=== PATIENT | female | born 1965 ===

== ENCOUNTER 2017-07-20 07:47 | Emergency (ER) | payer BC ==
[2017-07-20 08:08] VITALS: BP 149/94
--- NOTE | 2017-07-20 08:21 | UC ---
Throat Pain/Nasal Figueroa HPI - HPI Summary HPI Summary: sinus pain and pressure x 2 weeks, + pnd , nasal congestion , cough + fever, chills, - History of Current Complaint Chief Complaint: UCRespiratory Stated Complaint: fever/cough Time Seen by Provider: 07/20/17 08:09 Hx Obtained From: Patient Hx Last Menstrual Period: spotting Jul 2016 ?: No Onset/Duration: Gradual Onset, Lasting Weeks - 2, Still Present Severity: Moderate Pain Intensity: 0 Cough: Nonproductive Associated Signs & Symptoms: Positive: Sinus Discomfort, Nasal Discharge, Fever. Negative: Dysphagia, FB Sensation, Drooling, Wheezing, Hoarseness, Vomiting, Rash - Allergies/Home Medications Allergies/Adverse Reactions: Allergies Allergy/AdvReac Type Severity Reaction Status Date / Time seasonal allergies Allergy Congestion Uncoded 07/20/17 07:57 Home Medications: Home Medications GuaiFENesin DM* [Robitussin DM*] 10 ml PO Q4H PRN 07/20/17 [History Confirmed ] Lisinopril/HCTZ (NF) [Zestoretic (NF)] 1 tab PO DAILY 07/20/17 [ History Confirmed 07/20/17] PMH/Surg Hx/FS Hx/Imm Hx Cardiovascular History: Hypertension - Surgical History Surgical History: Yes Surgery Procedure, Year, and Place: C SECTION X 2, UTERINE ABLATION - Family History Known Family History: Negative: Diabetes - Social History Alcohol Use: Occasionally Substance Use Type: None Smoking Status (MU): Former Smoker When Did the Patient Quit Smoking/Using Tobacco: 06/06/17 Review of Systems Constitutional: Fever, Chills, Fatigue Skin: Negative Eyes: Negative ENT: Sore Throat, Nasal Discharge Respiratory: Cough Cardiovascular: Negative Gastrointestinal: Negative Is Patient Immunocompromised?: No All Other Systems Reviewed And Are Negative: Yes Physical Exam Triage Information Reviewed: Yes Appearance: Pain Distress, Obese Vital Signs: Initial Vital Signs Temp 99.7 F 07/20/17 08:01 Pulse 89 07/20/17 08:01 BP 149/94 07/20/17 08:01 Pulse Ox 98 07/20/17 08:01 Vital Signs Reviewed: Yes Eyes: Positive: Conjunctiva Clear ENT: Positive: Normal ENT inspection, Hearing grossly normal, Pharyngeal erythema, Nasal congestion, TMs normal, Sinus tenderness. Negative: Nasal drainage, TM bulging, TM dull, TM red, Tonsillar swelling, Tonsillar exudate Neck: Positive: Supple, Nontender, No Lymphadenopathy Respiratory: Positive: Chest non-tender, Lungs clear, Normal breath sounds Cardiovascular: Positive: RRR, No Murmur, Pulses Normal Skin Exam: Normal Throat Pain/Nasal Course/Dx - Course Course Of Treatment: elevated BP: most likely due to current illness. 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 with current medication. follow up with your pcp - Differential Dx/Diagnosis Provider Diagnoses: sinusitis. elevated Blood Pressure Discharge - Discharge Plan Condition: Stable Disposition: HOME Prescriptions: Amoxicillin/Clavulanate TAB* [Augmentin TAB 875*] 875 mg PO BID #20 tab Codeine Phosphate/Guaifenesin [Cheratussin AC] 10 ml PO Q8H PRN #120 ml MDD 30 ml PRN Reason: Cough Patient Education Materials: Sinusitis (ED) Referrals: Queenie Rice MD [Primary Care Provider] - 7 Days
== END 2017-07-20 08:27 | disposition home or self-care (01) ==
LOC: UCCORT 07:47
DX: J32.9 Chronic sinusitis, unspecified (principal); I10 Essential (primary) hypertension; Z87.891 Personal history of nicotine dependence
CPT/HCPCS: 99202; G0463